=== PATIENT | female | born 1980 | race Hispanic/Latino ===

== ENCOUNTER 2017-04-26 06:06 | Day surgery (SDC) | payer BC ==
[2017-04-11 16:37] VITALS: BMI 29.2
[2017-04-26] MEDS ORDERED: Lactated Ringer's 1,000 ML IV ONE (06:49)
--- NOTE | 2017-04-26 07:09 | CP.SDSHP ---
Same Day Surgery H & P - History Proposed Procedure: Left foot plantar fasciotomy with resection of heel spur Pre-Op Diagnosis: Plantar fasciitis of left foot with plantar calcaneal heel spur - Previous Medical/Surgical History Pain: 6.Severe Pain Previous Surgical History: None - Allergies Allergies: Allergies No Known Allergies Allergy (Verified 04/11/17 16:37) - Physical Exam Vital Signs: Vital Signs 04/26/17 04/26/17 06:29 06:31 Temperature 98.6 F Pulse Rate 90 90 Respiratory 20 Rate Blood Pressure 132/95 H O2 Sat by Pulse 96 Oximetry Mental Status: Alert & Oriented x3 - {Optional Preform as Required} Ortho: Other - Impression Pt. Evaluated Today:Candidate for Anesthesia & Procedure: Yes - Date & Time Date: 04/26/17 Time: 07:09 Short Stay Discharge - Short Stay Discharge Admitting Diagnosis/Reason for Visit: M77.32 M72.2 Disposition: HOME/ ROUTINE Referrals: Delbert Grant DPM [Primary Care Provider] -
[2017-04-26] MEDS ORDERED: Propofol 10 mg/ml Inj (20 ML) ONE ×3 (07:10→08:30)
--- NOTE | 2017-04-26 07:12 | CP.PCM.PN ---
Subjective - Date & Time of Evaluation Date of Evaluation: 04/26/17 Time of Evaluation: 07:09 - Subjective Subjective: 36 year old female with no pertinent PMH seen in [facility] for preoperative evaluation for left plantar fasciotomy with resection of heel spur by Dr. Grant today. Patient states that she has been having a lot of pain at the level of the medial calcaneal tubercle where the plantar fascia inserts over the last few months, especially when trying to ambulate after long periods of rest. She has exhausted all conservative treatment at this time and now opts for surgical intervention. NPO status is confirmed. Patient is NAD and AAO x 3 resting comfortably in bed. She denies N/V/F/C/CP/SOB Objective - Vital Signs/Intake and Output Vital Signs (last 24 hours): Temp Pulse Resp BP Pulse Ox 98.6 F 90 20 132/95 H 96 04/26/17 06:29 04/26/17 06:31 04/26/17 06:29 04/26/17 06:29 04/26/17 06:29 - Constitutional Appears: Well, Non-toxic, No Acute Distress - Extremities Exam Additional comments: LE focused exam Vasc: DP/PT pulses palpable 2/4 b/l. Skin temperature warm to warm from proximal to distal. CFT < 3 seconds to all digits b/l. Pedal hair growth appreciated. No edema noted b/l Neuro: Epicritic and protective sensation grossly intact b/l Derm: No open lesions, wounds, maceration, xerosis, abnormal pigmentation or abnormal growths noted. Nails noted to be well manicured, normotrophic, of appropriate color and adequate length MSK: No POP to b/l LE. MMT 5/5 on inversion, eversion, dorsiflexion and plantarflexion of feet b/l. ROM WNL to all major joints of LE - Neurological Exam Neurological Exam: Alert, Awake, Oriented x3 - Psychiatric Exam Psychiatric exam: Normal Affect, Normal Mood Assessment and Plan - Assessment and Plan (Free Text) Assessment: 36 year old female seen preoperatively in [facility] for left foot plantar fasciotomy with plantar spur resection Plan: Pt was seen and examined in [facility] Pt NPO status was confirmed All Pre-op testing and clearance was in the chart Pt has exhausted all conservative treatment at this time and is opting for surgical intervention Pt was explained procedure and post-operative course All pt's questions were answered to satisfaction No guarantees were made Pt understands all risks, benefits and complications of procedure Pt will follow-up with Dr. Grant
[2017-04-26] MEDS ORDERED: ceFAZolin IV 1 gm in Dextrose 1 GM/50 ML BAG IVPB ONE ×2 (07:16→07:45)
[2017-04-26] MEDS ORDERED: Lidocaine 1% Inj (20ml) IJ ONE ×3 (07:16→08:50)
[2017-04-26] MEDS ORDERED: Bupivacaine 0.5% Inj(30mL) IJ ONE (07:16)
[2017-04-26] MEDS ORDERED: Sodium Chloride 0.9% 1,000 ML IV SCH (07:30)
[2017-04-26] MEDS ORDERED: Dexamethasone 4 mg/1 ml ONE (07:45)
[2017-04-26] MEDS ORDERED: Lidocaine 1% Inj (20ml) ONE ×2 (07:45→07:59)
[2017-04-26] MEDS ORDERED: Bupivacaine 0.5% Inj(30mL) ONE (07:45)
[2017-04-26] MEDS ORDERED: Midazolam 2 MG/2 ML VIAL ONE ×2 (07:52→08:03)
[2017-04-26] MEDS ORDERED: ePHEDrine 50 mg/ml Inj ONE ×2 (08:33→09:20)
[2017-04-26] MEDS ORDERED: Dexamethasone 4 mg/1 ml IM ONE (08:50)
[2017-04-26] MEDS ORDERED: Oxycodone/Acetaminophen 5/325 mg Tab PO PRN ×2 (08:55)
[2017-04-26] MEDS ORDERED: HYDROmorphone 0.5 mg/0.5 ml ISec IVP PRN (08:57)
--- NOTE | 2017-04-26 09:01 | PCM.SURG1 ---
Surgeon's Initial Post Op Note - Surgeon's Notes Surgeon: Dr. Delbert Grant Load Dispatcher Local: Dr. Irene Ribeiro, PGY2 Type of Anesthesia: MAC, Local Anesthesia Administered By: Dr. Prather Pre-Operative Diagnosis: Plantar fasciitis and calcaneal spur of left foot Operative Findings: See dictation report. I- 10 cc 0.5% marcaine plain and 1 cc dexamethasone 4 mg/ml. M- 3-0 nylon suture Post-Operative Diagnosis: Same Operation Performed: Left foot plantar fasciotomy with resection of heel spur Specimen/Specimens Removed: None Estimated Blood Loss: EBL {In ML}: 1 Blood Products Given: N/A Drains Used: No Drains Post-Op Condition: Good Date of Surgery/Procedure: 04/26/17 Time of Surgery/Procedure: 09:02
[2017-04-26 09:22] VITALS: O2SAT 99
[2017-04-26 10:08] VITALS: RESP 18
[2017-04-26 10:45] VITALS: BP 129/78; PULSE 83; TEMP 98.1
--- NOTE | 2017-05-01 08:58 | OP ---
PREOPERATIVE DIAGNOSIS: Left foot plantar fasciitis with painful bone spur. POSTOPERATIVE DIAGNOSIS: Left foot plantar fasciitis with painful bone spur. PROCEDURE: Left foot plantar fasciectomy with resection of bone spur. SURGEON: Delbert Grant DPM GEAR SETTER: Irene Ribeiro DPM, PGY2. TYPE OF ANESTHESIA: MAC IV sedation with local injection. ANESTHESIA ADMINISTERED BY: Dr. Prather INDICATIONS: The patient is a 36-year-old female the with above-mentioned diagnosis. The patient has exhausted all conservative treatment measures at this time and now requires surgical intervention. The patient signed the consent after careful explanation of all risks, benefits, complications, and alternatives for the surgical procedure. No guarantees were given nor implied. N.p.o status was confirmed prior to taking the patient to the operating room. PREPARATION: The patient was brought in to the operating room and placed in the operating table in a supine position. A timeout was performed for identification of the correct patient and procedure. After induction of IV sedation, a well-padded pneumatic ankle tourniquet was applied in a supramalleolar position to the patient's left ankle and 10 mL of 0.5% lidocaine plain was injected in a local block fashion to the patient's left foot. After induction of IV sedation, the left foot was then prepped and draped in a normal sterile manner and the procedure was began. DESCRIPTION OF PROCEDURE: Left foot plantar fasciectomy with bone spur resection: Attention was then directed to the plantar aspect of the left foot where under C-arm guidance location of the central heel spur was identified using an 18-gauge needle. An approximately 1-cm linear longitudinal incision was then made approximately 1-cm anterior to the location of the bone spur using a #15 blade. The incision was then deepened through the subcutaneous tissue and the tissues were frayed down to the level of the heel spur and plantar fascial band. portion of the #15 blade, the medial band of the plantar fascia was released and it was confirmed by using a hemostat to feel for any remaining fibers. At this time, a power rasp was utilized to resect the bone spur from the plantar medial aspect of the calcaneus of the left foot, which was confirmed on C-arm. Once adequate removal of the bone spur was identified, the wound was then flushed with copious amounts of sterile normal saline. The skin edges were reapproximated using #3-0 nylon suture with a retention suture and two simple sutures. POSTOPERATIVE CONDITION: The patient tolerated the anesthesia and procedure well and was escorted to recovery room with vital signs stable and neurovascular structures intact to the right lower extremity. The patient will be weightbearing as tolerated with a CAM walker. The patient will follow up with Dr. Grant within 1 week. Irene Ribeiro DPM Delbert Grant DPM MTDD
== END 2017-04-26 10:55 | disposition home or self-care (01) ==
LOC: H.OPSURG 06:06
PROVIDERS: ATTEND Podiatrist Foot & Ankle Surgery
DX: M72.2 Plantar fascial fibromatosis (principal); M77.32 Calcaneal spur, left foot; M77.52 Other enthesopathy of left foot and ankle
CPT/HCPCS: 28062; J0690; J1100; J2001; J2250; J2704; J3010; J7120